=== PATIENT | male | born 1995 | race Caucasian/White ===

== ENCOUNTER 2017-02-27 10:16 | Day surgery (SDC) | payer OTHER ==
[~2017-02-27] VITALS: Ht 177.8 cm; Wt 71.0 kg
[2017-02-27 10:48] LABS: HEMATOCRIT 40.8 % (38.0-50.0); MCH 30.2 PG (29.0-34.0); MCV 86.1 FL (86-99); MEAN PLAT.VOLUME 10.8 uM^3 (9.0-12.4); PLATELET COUNT 178 K/uL (156-360); RBC DIS.WIDTH-CV 12.6 % (11.8-14.6); RBC DIS.WIDTH-SD 39.3 % (39-53); RED BLOOD COUNT 4.74 M/uL (4.00-5.50); WHITE BLOOD COUNT 14.4 K/uL (4.1-10.2)
[2017-02-27 10:56] LABS: CHLORIDE 107 mEq/L (99-109); SODIUM 139 mEq/L (136-147)
[2017-02-27 10:58] LABS: GLUCOSE 136 mg/dL (70-99)
[2017-02-27 10:59] LABS: ANION GAP 10 MEQ/L (2-14)
[2017-02-27 11:00] LABS: TOTAL BILIRUBIN 0.8 mg/dL (0.0-1.0)
[2017-02-27 11:01] LABS: ALKALINE PHOSPHATASE 52 IU/L (3-129)
[2017-02-27 11:02] LABS: GFR ESTIMATE (CALCULATED) > 59 mL/min/
[2017-02-27 11:03] LABS: UREA NITROGEN (BUN) 11 mg/dL (9-23)
[2017-02-27 11:05] LABS: LIPASE 11 U/L (1.0-51.0)
[2017-02-27 13:45] LABS: ADD MIUA? YES; BILIRUBIN NEGATIVE; BLOOD NEGATIVE; COLOR YELLOW ((YELLOW)); GLUCOSE (STRIP) NEGATIVE; KETONES 5; LEUKOCYTES NEGATIVE; NITRITE NEGATIVE; PROTEIN (STRIP) NEGATIVE; UROBILINOGEN 0.2 MG/DL (0.2-1.0)
[2017-02-27 14:07] LABS: AMORPHOUS PHOSPHATE CRYSTALS 1+; BACTERIA NONE SEEN /HPF; CASTS NONE SEEN /LPF; CRYSTALS PRESENT; EPITHELIAL CELLS RARE /HPF; MUCUS NONE SEEN /LPF; RED BLOOD CELLS NONE SEEN /HPF (0-5); UCUL ADDED? NO; WHITE BLOOD CELLS RARE /HPF (0-5)
[2017-02-27 14:19] LABS: SPECIFIC GRAVITY 1.074 (1.000-1.030)
[2017-02-27 23:26] VITALS: BP 132/79
[2017-02-28 03:32] VITALS: BP 117/67
[2017-02-28 08:17] VITALS: BP 122/60
[2017-02-28] MEDS ORDERED: PERCOCET 5/31 TABLET PO (10:15)
== END 2017-02-28 11:00 | disposition home or self-care (01) ==
LOC: EME 10:16 → SDC 19:21 → ENRESERV 21:14 → 2SOUTH 21:15 → 2EAST 21:15 → 2SOUTH 21:15 → ENRESERV 21:40 → 2EAST 22:28
PROC: 0DTJ4ZZ Resection of Appendix, Percutaneous Endoscopic Approach (ICD-10-PCS; principal; 2017-02-27)
DX: K35.80 Unspecified acute appendicitis (principal); K38.1 Appendicular concretions; R11.2 Nausea with vomiting, unspecified
CPT/HCPCS: 74177; 80053; 81003; 83690; 85027; 88304; 99281; 99285; G0378; J0131; J0330; J1170; J1885; J2175; J2405; J3010; J7030; J7040; J7120

== ENCOUNTER 2017-03-11 22:50 | Emergency (ER) | payer OTHER ==
[~2017-03-11] VITALS: Ht 177.8 cm; Wt 62.2 kg
[~2017-03-11 22:50] MED LIST: PERCOCET 5/31 TABLET PO
[2017-03-11 23:31] LABS: HEMATOCRIT 37.4 % (38.0-50.0); MCH 30.2 PG (29.0-34.0); MCHC 35.8 G/DL (30.0-36.0); MCV 84.2 FL (86-99); MEAN PLAT.VOLUME 10.2 uM^3 (9.0-12.4); RBC DIS.WIDTH-CV 12.1 % (11.8-14.6); RED BLOOD COUNT 4.44 M/uL (4.00-5.50); WHITE BLOOD COUNT 9.4 K/uL (4.1-10.2)
[2017-03-11 23:32] LABS: PLATELET COUNT 233 K/uL (156-360)
[2017-03-11] MEDS ORDERED: BACTRIM,SEPT1 TABLET PO (23:35)
[2017-03-11 23:47] VITALS: BP 132/66
== END 2017-03-11 23:48 | disposition home or self-care (01) ==
LOC: EME 22:50 → RME 22:50
PROVIDERS: Emergency Medicine
DX: L03.114 Cellulitis of left upper limb (principal); T82.7XXA Infection and inflammatory reaction due to other cardiac and vascular devices, implants and grafts, initial encounter; Y84.8 Other medical procedures as the cause of abnormal reaction of the patient, or of later complication, without mention of misadventure at the time of the procedure
CPT/HCPCS: 85027; 99281; 99284